=== PATIENT | male | born 1965 | race American Indian/Alaskan Native ===

== ENCOUNTER 2020-02-18 13:08 | Observation (INO) | payer OTHER ==
[~2020-02-18 13:08] MED LIST: ACETAMINOPHEN 500 MG TAB PO SCH; AMPHOTERICIN B 50 MG VIAL IV SCH; BACITRACIN 50,000 UNIT VIAL ONE; D5W 50 ML IVPB IV SCH; GABAPENTIN 300 MG CAP PO NR; GENTAMICIN 40 MG/ML VIAL 2 ML ONE; GENTAMICIN/NS 80 MG/100 ML 100 ML IV SCH; HYDROGEN PEROXIDE 118 ML SOLUTION ONE; LACTATED RINGERS 1,000 ML IV SCH; MIDAZOLAM 2 MG/2 ML INJ IV NR; SODIUM CHLORIDE P/F VIAL 10 ML 20 ML ONE; VANCOMYCIN 1000 MG INJ ONE; VANCOMYCIN/NS 1 GM/250 ML 1 GM/250 ML BAG IV NR
--- NOTE | 2020-02-18 13:52 | Anesthesia Day of Surgery ---
Anesthesia Day of Surgery - Day of Surgery Patient Examined: Yes Patient H&P Reviewed: Yes Patient is NPO: Yes
--- NOTE | 2020-02-18 13:52 | Anesthesia Consultation ---
Anesthesia Consult and Med Hx Date of service: 02/18/20 - Airway Anesthetic Teeth Evaluation: Dentures ROM Head & Neck: Adequate Mental/Hyoid Distance: Adequate Mallampati Class: Class II Intubation Access Assessment: Probably Good (previous LMA 4) - Pulmonary Exam CTA: Yes - Cardiac Exam Cardiac Exam: RRR - Pre-Operative Health Status ASA Pre-Surgery Classification: ASA3 Proposed Anesthetic Plan: General - Pulmonary Hx Smoking: Yes (21pk yr hx) Hx Respiratory Symptoms: No Hx Sleep Apnea: No (HAWA PRE SCREEN HIGH RISK) - Cardiovascular System Hx Hypertension: Yes (took antihypertensives this morning) Hx Heart Attack/AMI: Yes (2016; >4mets exercise tolerance) Hx Percutaneous Transluminal Coronary Angioplasty (PTCA): Yes (stents x2 2016) Hx Cardia Arrhythmia: No Hx Pacemaker: No Hx Internal Defibrillator: No - Central Nervous System CVA: No Hx Psychiatric Problems: No - Gastrointestinal Hx Gastroesophageal Reflux Disease: No - Endocrine Hx Renal Disease: No Hx Liver Disease: No Hx Insulin Dependent Diabetes: Yes Hx Thyroid Disease: No - Other Systems Hx Obesity: No - Additional Comments Anesthesia Medical History Comments: No hx anesthetic complications.
[2020-02-18] MEDS ORDERED: ONDANSETRON 4 MG/2 ML INJ IV PRN (13:53)
[2020-02-18] MEDS ORDERED: AMPHOTERICIN B IR NR (14:00)
[2020-02-18] MEDS ORDERED: [UNRECOGNIZED DRUG - OTHER] IR NR (14:00)
[2020-02-18] MEDS ORDERED: propofoL 200 MG/20 ML VIAL IV ONE (15:03)
[2020-02-18] MEDS ORDERED: LIDOCAINE MPF (2%) 20 MG/1 ML VIAL 5 ML ONE (15:09)
[2020-02-18] MEDS ORDERED: rifAMPin 600 MG VIAL ONE (16:14)
[2020-02-18] MEDS ORDERED: AMPHOTERICIN B 50 MG VIAL ONE (16:30)
[2020-02-18] MEDS ORDERED: KETOROLAC 30 MG/1 ML INJ ONE (16:30)
[2020-02-18] MEDS ORDERED: dexAMETHasone 20 MG/5 ML VIAL ONE (16:30)
[2020-02-18] MEDS ORDERED: ONDANSETRON 4 MG/2 ML INJ ONE (16:30)
[2020-02-18] MEDS ORDERED: SODIUM CHLORIDE P/F VIAL 10 ML 20 ML ONE (16:40)
[2020-02-18] MEDS ORDERED: PHENYLEPHRINE/NS 1,000 MCG/10 ML SYRINGE (OR USE) IV ONE (16:40)
[2020-02-18] MEDS ORDERED: SODIUM CHLORIDE 0.9% 100 ML ONE (16:49)
[2020-02-18] MEDS ORDERED: rifAMPin 600 MG VIAL IV ONE (17:07)
[2020-02-18] MEDS ORDERED: BACITRACIN 50,000 UNIT VIAL IR ONE (17:07)
[2020-02-18] MEDS ORDERED: ePHEDrine SULFATE 50 MG/1 ML INJ ONE (17:08)
[2020-02-18] MEDS ORDERED: SODIUM CHLORIDE 0.9% 100 ML IVPB IV ONE (17:09)
[2020-02-18] MEDS ORDERED: HYDROGEN PEROXIDE 118 ML SOLUTION IRRIGATION ONE (17:09)
[2020-02-18] MEDS ORDERED: GENTAMICIN 40 MG/ML VIAL 2 ML IV ONE (17:09)
[2020-02-18] MEDS ORDERED: SODIUM CHLORIDE 0.9% IRR 1,000 ML BOTTLE IR ONE (17:10)
[2020-02-18] MEDS ORDERED: ONDANSETRON 4 MG ODT TAB PO PRN (17:31)
[2020-02-18] MEDS ORDERED: NALOXONE 0.4 MG/1 ML INJ IV PRN (17:31)
[2020-02-18] MEDS ORDERED: DEXTROSE 50% IN WATER (25GM) 50 ML SYRINGE IV PRN ×2 (17:31→18:35)
--- NOTE | 2020-02-18 17:31 | Short Stay Summary ---
Short Stay Documentation Date of service: 02/18/20 - History H&P: obtained from office - Allergies and Medications Current Medications: Allergies No Known Allergies Allergy (Verified 12/10/19 14:35) Home Medications Medication Instructions Recorded Confirmed Last Taken Type Aspirin 81 mg PO DAILY 12/09/19 02/18/20 02/15/20 History Atorvastatin 20 mg PO DAILY 12/09/19 02/18/20 02/13/20 History Furosemide [Lasix TAB] 20 mg PO DAILY 12/09/19 02/15/20 02/18/20 04:00 History Gabapentin 300 mg PO DAILY 12/09/19 02/15/20 02/18/20 04:00 History Lispro Insulin [HumaLOG] 13 units SQ QAM 12/09/19 02/18/20 02/17/20 History carvediloL [Coreg] 25 mg PO DAILY 12/09/19 02/15/20 02/18/20 04:00 History lisinopriL [Zestril TAB] 20 mg PO DAILY 12/09/19 02/15/20 02/18/20 04:00 History metFORMIN 500 mg PO DAILY 12/09/19 02/18/20 02/11/20 History Active Medications Acetaminophen (Tylenol) 1,000 mg PO PREOP LAURA Stop: 02/18/20 22:00 Last Admin: 02/18/20 13:58 Dose: 1,000 mg Documented by: Dextrose (D5w (50 Ml)) 5 ml IV Q24H LAURA Stop: 02/18/20 23:00 Gabapentin (Gabapentin) 300 mg PO PREOP NR Stop: 02/18/20 22:00 Last Admin: 02/18/20 13:58 Dose: 300 mg Documented by: Hydromorphone HCl (Dilaudid) 0.5 mg IV Q10MIN PRN PRN Reason: Pain , Severe (7-10) Stop: 02/18/20 23:59 Lactated Ringer's (Lactated Ringers) 1,000 mls @ 100 mls/hr IV DIRECT LAURA Stop: 02/18/20 23:59 Last Admin: 02/18/20 14:13 Dose: 100 mls/hr Documented by: Gentamicin Sulfate/Sodium Chloride (Gentamicin/Ns 80 Mg/100 Ml) 100 mls @ 200 mls/hr IV PREOP LAURA Stop: 02/29/20 23:59 Vancomycin HCl (Vancomycin/Ns 1 Gm/250 Ml) 1 gm in 250 mls @ 166.667 mls/hr IV PREOP NR; Protocol Stop: 02/18/20 23:59 Last Admin: 02/18/20 14:41 Dose: 166.667 mls/hr Documented by: Midazolam HCl (Versed) 2 mg IV PREOP NR Stop: 02/18/20 22:00 Ondansetron HCl (Zofran) 4 mg IV ONCE PRN PRN Reason: Nausea And Vomiting - Brief post op/procedure progress note Date of procedure: 02/18/20 Pre-op diagnosis: infected ipp (coloplast) Post-op diagnosis: same Procedure: removed inflatable penile prosthesis, wash out, insert semirigid penile [id number] Anesthesia: GETA Findings: infected pum, washout, shoshana in pump fossa Surgeon: VLAD CORDOVA Estimated blood loss: minimal Pathology: none Condition: stable - Hospital course Hospital course: lopez & drain removed keep penile point upward norco, flomax, bactrim , diflucan on chart diabetic support eval done - Disposition Condition at discharge: Stable Short Stay Discharge Plan Follow up with: PRIMARY CARE, [Primary Care Provider] - 7 Days
[2020-02-18] MEDS: HYDROmorphone 1 MG/1 ML INJ IV PRN ×4 (17:41→18:14)
[2020-02-18] MEDS ORDERED: HYDROmorphone 1 MG/1 ML INJ ONE ×2 (17:46→18:05)
[2020-02-18] MEDS ORDERED: MORPHINE 4 MG/1 ML INJ ONE (18:16)
[2020-02-18] MEDS: MORPHINE 4 MG/1 ML INJ IV PRN (18:17)
--- NOTE | 2020-02-18 18:26 | Post Anesthesia Evaluation ---
- Post Anesthesia Evaluation Patient Participated: Yes Airway Patent: Yes Stable Respiratory Function: Yes Nausea/Vomiting: No Temp > 96.8F: Yes Pain Manageable: Yes Adequeate Hydration: Yes Anesthesia Complications: No
--- NOTE | 2020-02-18 18:31 | Consultation ---
History of Present Illness - Reason for Consult Consult date: 02/18/20 Requesting physician: VLAD CORDOVA - History of Present Illness 54 YO Male with DM, Nicotine Dependence, HTN, [place], CAD S/P Stent Placement, [place] admitted to urologic procedure. Patient seen and evaluated in his room. Patient resting comfortably. Patient denies fever, chills, chest pain, palpita tion, productive cough, skin rash, recent ill contacts. No reported nursing events. Past History Past Medical History: CAD, diabetes, hypertension, hyperlipidemia Past Surgical History: Other (Cardiac stent placement) Social history: single. denies: smoking, alcohol abuse Family history: diabetes, hypertension Medications and Allergies Allergies Allergy/AdvReac Type Severity Reaction Status Date / Time No Known Allergies Allergy Verified 12/10/19 14:35 Home Medications Medication Instructions Recorded Confirmed Last Taken Type Aspirin 81 mg PO DAILY 12/09/19 02/18/20 02/15/20 History Atorvastatin 20 mg PO DAILY 12/09/19 02/18/20 02/13/20 History Furosemide [Lasix TAB] 20 mg PO DAILY 12/09/19 02/15/20 02/18/20 04:00 History Gabapentin 300 mg PO DAILY 12/09/19 02/15/20 02/18/20 04:00 History Lispro Insulin [HumaLOG] 13 units SQ QAM 12/09/19 02/18/20 02/17/20 History carvediloL [Coreg] 25 mg PO DAILY 12/09/19 02/15/20 02/18/20 04:00 History lisinopriL [Zestril TAB] 20 mg PO DAILY 12/09/19 02/15/20 02/18/20 04:00 History metFORMIN 500 mg PO DAILY 12/09/19 02/18/20 02/11/20 History Active Meds: Active Medications Acetaminophen (Tylenol) 1,000 mg PO PREOP LAURA Stop: 02/18/20 22:00 Last Admin: 02/18/20 13:58 Dose: 1,000 mg Documented by: Hydrocodone Bitart/Acetaminophen ([place] 5/325) 2 each PO Q6H PRN PRN Reason: Pain, Moderate (4-6) Dextrose (D5w (50 Ml)) 5 ml IV Q24H LAURA Stop: 02/18/20 23:00 Dextrose (D50w (25gm) Syringe) 50 ml IV Q30MIN PRN; Protocol PRN Reason: Hypoglycemia Gabapentin (Gabapentin) 300 mg PO PREOP NR Stop: 02/18/20 22:00 Last Admin: 02/18/20 13:58 Dose: 300 mg Documented by: Lactated Ringer's (Lactated Ringers) 1,000 mls @ 100 mls/hr IV DIRECT LAURA Stop: 02/18/20 23:59 Last Admin: 02/18/20 14:13 Dose: 100 mls/hr Documented by: Gentamicin Sulfate/Sodium Chloride (Gentamicin/Ns 80 Mg/100 Ml) 100 mls @ 200 mls/hr IV PREOP LAURA Stop: 02/29/20 23:59 Vancomycin HCl (Vancomycin/Ns 1 Gm/250 Ml) 1 gm in 250 mls @ 166.667 mls/hr IV PREOP NR; Protocol Stop: 02/18/20 23:59 Last Admin: 02/18/20 14:41 Dose: 166.667 mls/hr Documented by: Vancomycin HCl (Vancomycin/Ns 1 Gm/250 Ml) 1 gm in 250 mls @ 167.007 mls/hr IV Q12H LAURA Stop: 02/19/20 03:30 Metronidazole (Flagyl 500 Mg/100 Ml) 500 mg in 100 mls @ 100 mls/hr IV Q8HR LAURA; Protocol Insulin Human Regular (Humulin R) 0 unit SUB-Q ACHS LAURA; Protocol Midazolam HCl (Versed) 2 mg IV PREOP NR Stop: 02/18/20 22:00 Morphine Sulfate (Morphine) 4 mg IV Q4H PRN PRN Reason: Pain , Severe (7-10) Last Admin: 02/18/20 18:17 Dose: 4 mg Documented by: Naloxone HCl (Naloxone) 0.1 mg IV Q2MIN PRN PRN Reason: Res Rate </= 8 or 02 SAT < 92% Ondansetron HCl (Zofran) 4 mg IV ONCE PRN PRN Reason: Nausea And Vomiting Ondansetron HCl (Zofran Odt) 4 mg PO Q8H PRN PRN Reason: Nausea And Vomiting Review of Systems Constitutional: no weight loss, no weight gain, no fever, no chills Ears, nose, mouth and throat: no ear pain, no ear discharge, no tinnitis, no decreased hearing, no nose pain Cardiovascular: no chest pain, no palpitations, no rapid/irregular heart beat, no edema, no syncope Respiratory: no cough, no cough with sputum, no excessive sputum, no shortness of breath Gastrointestinal: no abdominal pain, no vomiting, no constipation, no change in bowel habits Genitourinary Male: no flank pain, no urinary frequency Rectal: no pain, no incontinence, no bleeding Musculoskeletal: no neck stiffness, no neck pain, no arm numbness/tingling, no low back pain Integumentary: no rash, no pruritis, no redness, no sores, no wounds, no jaundice Neurological: no head injury, no paralysis, no parathesias, no tingling, no seizures, no syncope Psychiatric: no anxiety, no memory loss, no insomnia, no hypersomnia, no change in appetite, no change in libido, no suicidal ideation Endocrine: no cold intolerance, no excessive thirst, no nocturia, no flushing, no weight change, no proptosis, no high blood sugars, no recent glucocorticoid use Hematologic/Lymphatic: no easy bleeding, no lymphadenopathy Allergic/Immunologic: no urticaria, no wheezing, no persistent infections, no angioedema Exam - Constitutional Vitals: Temp Pulse Resp BP Pulse Ox 98.5 F 75 14 107/67 100 02/18/20 14:25 02/18/20 14:25 02/18/20 18:17 02/18/20 14:25 02/18/20 14:25 General appearance: Present: no acute distress, well-nourished - EENT Eyes: Present: PERRL ENT: hearing intact, clear oral mucosa - Neck Neck: Present: supple, normal ROM - Respiratory Respiratory effort: normal Respiratory: bilateral: CTA - Cardiovascular Heart Sounds: Present: S1 & S2. Absent: rub, click - Extremities Extremities: pulses symmetrical, No edema Peripheral Pulses: within normal limits - Abdominal General gastrointestinal: Present: soft, non-tender, non-distended, normal bowel sounds Male genitourinary: Present: normal - Integumentary Integumentary: Present: clear, warm, dry - Musculoskeletal Musculoskeletal: gait normal, strength equal bilaterally - Psychiatric Psychiatric: appropriate mood/affect, intact judgment & insight - Neurologic Neurologic: CNII-XII intact, moves all extremities Results - Labs CBC & Chem 7: 02/18/20 14:13 Labs: Abnormal lab results 02/18/20 Range/Units 14:34 POC Glucose 128 H (70-105) Assessment and Plan - Patient Problems (1) Diabetes Current Visit: Yes Status: Acute Plan to address problem: Sliding scale insulin therapy, Accu-Chek, consistent carbohydrate diet, hypoglycemia protocol. (2) Hyperlipidemia Current Visit: No Status: Chronic Qualifiers: Hyperlipidemia type: mixed hyperlipidemia Qualified Code(s): E78.2 - Mixed hyperlipidemia Plan to address problem: Low-cholesterol diet, statin therapy as clinically indicated, risk factor red uction. (3) Hypertension Current Visit: No Status: Chronic Qualifiers: Hypertension type: essential hypertension Qualified Code(s): I10 - Essential (primary) hypertension Plan to address problem: Monitor blood pressure every shift, continue medical management.
[2020-02-18] MEDS ORDERED: INSULIN REGULAR, HUMAN 100 UNIT/ML 3ML VIAL SUB-Q SCH (22:00)
[2020-02-18] MEDS: metroNIDAZOLE/NS 500 MG/100 ML 500 MG/100 ML BAG IV SCH (22:33)
[2020-02-18] MEDS: HYDROcodone/ACETAMINOPHEN 5-325 MG TAB PO PRN (22:34)
[2020-02-19] MEDS ORDERED: VANCOMYCIN/NS 1 GM/250 ML 1 GM/250 ML BAG IV SCH (02:00)
[2020-02-19] MEDS: MORPHINE 4 MG/1 ML INJ IV PRN (02:25)
[2020-02-19] MEDS: INSULIN LISPRO 100 UNIT/ML VIAL 3 mL SUB-Q SCH ×3 (02:31→07:28)
[2020-02-19] MEDS: metroNIDAZOLE/NS 500 MG/100 ML 500 MG/100 ML BAG IV SCH (05:00)
[2020-02-19 05:33] LABS: Basophils % (Auto) 0.2 % (0.0-1.8); Hemoglobin 9.9 gm/dl (11.8-15.2); Lymphocytes # (Auto) 1.5 K/mm3 (1.2-5.4); Lymphocytes % (Auto) 10.7 % (13.4-35.0); Mean Corpuscular HGB Conc 33 % (32-34); Mean Corpuscular Volume 85 fl (84-94); Monocytes # (Auto) 0.8 K/mm3 (0.0-0.8); Monocytes % (Auto) 5.4 % (0.0-7.3); Platelet Count 414 K/mm3 (140-440); Red Blood Count 3.53 M/mm3 (3.65-5.03); Red Cell Distribution Width 15.3 % (13.2-15.2)
[2020-02-19] MEDS: HYDROcodone/ACETAMINOPHEN 5-325 MG TAB PO PRN (06:20)
[2020-02-19 07:10] LABS: BUN/Creatinine Ratio 18; Blood Urea Nitrogen 22 mg/dL (9-20); Calcium 9.1 mg/dL (8.4-10.2); Hemolysis Index 5
--- NOTE | 2020-02-19 09:04 | Event Note ---
Date: 02/19/20 lopez & drain removed keep penile point upward norco, flomax, bactrim , diflucan on chart needs diabetic support eval
[2020-02-19] MEDS ORDERED: carvediloL 25 MG TAB PO SCH (10:00)
[2020-02-19] MEDS ORDERED: GABAPENTIN 300 MG CAP PO SCH (10:00)
[2020-02-19] MEDS ORDERED: FUROSEMIDE 20 MG TAB PO SCH (10:00)
[2020-02-19] MEDS ORDERED: NON-FORMULARY EACH (Atorvastatin 20 MG) PO SCH (10:00)
[2020-02-19] MEDS ORDERED: LISINOPRIL 20 MG TAB PO SCH (10:00)
[2020-02-19 12:12] VITALS: BP 131/69
[2020-02-19 13:15] LABS: Basophils % (Auto) 0.3 % (0.0-1.8); Eosinophils # (Auto) 0.1 K/mm3 (0.0-0.4); Eosinophils % (Auto) 0.7 % (0.0-4.3); Hematocrit 30.1 % (35.5-45.6); Hemoglobin 10.2 gm/dl (11.8-15.2); Lymphocytes % (Auto) 12.7 % (13.4-35.0); Mean Corpuscular HGB Conc 34 % (32-34); Mean Corpuscular Volume 85 fl (84-94); Monocytes % (Auto) 6.1 % (0.0-7.3); Platelet Count 425 K/mm3 (140-440); Red Blood Count 3.53 M/mm3 (3.65-5.03); Red Cell Distribution Width 15.8 % (13.2-15.2)
--- NOTE | 2020-02-19 13:58 | Progress Note ---
Assessment and Plan (1) Diabetes Current Visit: Yes Status: Acute Plan to address problem: Sliding scale insulin therapy, Accu-Chek, consistent carbohydrate diet, hy poglycemia protocol. (2) Hyperlipidemia Current Visit: No Status: Chronic Qualifiers: Hyperlipidemia type: mixed hyperlipidemia Qualified Code(s): E78.2 - Mixed hyperlipidemia Plan to address problem: Low-cholesterol diet, statin therapy as clinically indicated, risk factor reduction. (3) Hypertension Current Visit: No Status: Chronic Qualifiers: Hypertension type: essential hypertension Qualified Code(s): I10 - Ess ential (primary) hypertension Plan to address problem: Monitor blood pressure every shift, continue medical management. - patient being dc today with outpt f/.u Subjective Date of service: 02/19/20 Objective - Constitutional Vitals: Vital Signs - 12hr 02/19/20 02/19/20 02/19/20 07:49 10:38 10:39 Temperature 97.7 F Pulse Rate 69 69 69 Respiratory 14 Rate Blood Pressure 128/70 128/70 Blood Pressure 128/70 [Left] O2 Sat by Pulse 97 Oximetry 02/19/20 12:00 Temperature 97.8 F Pulse Rate 72 Respiratory 15 Rate Blood Pressure Blood Pressure 131/69 [Left] O2 Sat by Pulse 97 Oximetry - Labs CBC & Chem 7: 02/19/20 12:37 02/19/20 04:59 Labs: Abnormal lab results 02/18/20 02/19/20 02/19/20 Range/Units 14:34 02:46 04:59 WBC 14.5 H (4.5-11.0) K/mm3 RBC 3.53 L (3.65-5.03) M/mm3 Hgb 9.9 L (11.8-15.2) gm/dl Hct 30.0 L (35.5-45.6) % RDW 15.3 H (13.2-15.2) % Lymph % (Auto) 10.7 L (13.4-35.0) % [place] # (Auto) (0.0-0.8) K/mm3 Seg Neutrophils % 83.7 H (40.0-70.0) % Seg Neutrophils # 12.2 H (1.8-7.7) K/mm3 Sodium (137-145) mmol/L BUN (9-20) mg/dL Glucose (75-100) mg/dL POC Glucose 128 H 264 H (70-105) 02/19/20 02/19/20 02/19/20 Range/Units 04:59 06:32 07:24 WBC (4.5-11.0) K/mm3 RBC (3.65-5.03) M/mm3 Hgb (11.8-15.2) gm/dl Hct (35.5-45.6) % RDW (13.2-15.2) % Lymph % (Auto) (13.4-35.0) % [place] # (Auto) (0.0-0.8) K/mm3 Seg Neutrophils % (40.0-70.0) % Seg Neutrophils # (1.8-7.7) K/mm3 Sodium 136 L (137-145) mmol/L BUN 22 H (9-20) mg/dL Glucose 232 H (75-100) mg/dL POC Glucose 227 H 250 H (70-105) 02/19/20 02/19/20 Range/Units 12:00 12:37 WBC 16.1 H (4.5-11.0) K/mm3 RBC 3.53 L (3.65-5.03) M/mm3 Hgb 10.2 L (11.8-15.2) gm/dl Hct 30.1 L (35.5-45.6) % RDW 15.8 H (13.2-15.2) % Lymph % (Auto) 12.7 L (13.4-35.0) % [place] # (Auto) 1.0 H (0.0-0.8) K/mm3 Seg Neutrophils % 80.2 H (40.0-70.0) % Seg Neutrophils # 12.9 H (1.8-7.7) K/mm3 Sodium (137-145) mmol/L BUN (9-20) mg/dL Glucose (75-100) mg/dL POC Glucose 228 H (70-105)
--- NOTE | 2020-02-19 18:15 | Operative Report ---
PREOPERATIVE DIAGNOSIS: Infected inflatable penile prosthesis. POSTOPERATIVE DIAGNOSIS: Infected inflatable penile prosthesis. PROCEDURE: Removal and replacement of inflatable penile prosthesis through infected field with Owen irrigation system. SURGEON: Mode Dahl MD ANESTHESIA: General. ESTIMATED BLOOD LOSS: Minimal. FLUIDS: Crystalloid. COMPLICATIONS: No complications. INDICATIONS: This 54-year-old gentleman with a history of erectile dysfunction secondary to diabetes and smoking. Discussed options. The patient agreed and underwent insertion of inflatable penile prosthesis on 12/14/2019 (Coloplast device). On initial followup, the patient was doing well. It was noted his blood sugar was high. At this point, he is having difficulty getting his medication for his diabetes. He was seen on several visits for pain and drainage. He was given antibiotics orally as well as injection. Also, of note again his urine continued to dip positive for glucose. Hemoglobin A1c was 9.8. His drainage persisted and felt it was prudent to proceed with exploration and possible removal, replacement, revision. Risks, benefits, and complications were explained. DESCRIPTION OF PROCEDURE: The patient was taken to the operative suite, placed in a supine position. After adequate general anesthesia, he was prepped and draped in a sterile fashion. On inspection, the patient had a bullous lesion, mid shaft on the left side. Singh catheter was placed. He had drainage from the scrotum. Midline scrotal incision was made through a preexisting incision. There was jostin pus noted in the pump compartment. This was cultured, anaerobic and aerobic. Copious irrigation was performed. I tracked the tubing to the reservoir. It was cut. The reservoir was drained and it was removed. No obvious sign of infection was noted in the reservoir fossa via the right external ring. Attention was then taken to the corporal bodies, which with the tubing was tracked to the left corporal body. Corporotomy was made. There was a small amount of drainage noted here. Also, when I irrigate it, it was noted to have a small hole in mid shaft. Cylinder was removed on the left. Corporotomy was made and the cylinder was removed on the right with no obvious infection on the right side. Left corporal body was cultured. Next, using a Owen soup wash vigorous irrigation was performed in the corporal bodies and in the pump. Measurements revealed 22 cm. It was felt that he would benefit from a semi-rigid device to maintain corporal body integrity, and therefore, a Stephani malleable device, which was cut to 22 cm, it was 11 mm diameter. Prior to placement, three Vicryl suture was placed in the small hole on left corporal by the left side of the shaft of the penis using 2-0 Vicryl in interrupted fashion, irrigation, no leak in that side. Then, the cylinders were both placed and closed in 2-0 Vicryl in an interrupted fashion. The cylinders were soaked in antibiotic solution and amphotericin was added to this solution. The solution was also used to irrigate the wound as well. The dartos layer was then closed using 2-0 Vicryl in interrupted fashion. In the dependent portion of the scrotum as where the infection was noted and therefore, attention was taken to wall this off from the rest of the device and a small 0.5-inch Galina was placed in the dependent portion of the scrotum. Skin was closed with 2-0 Vicryl in interrupted fashion. Mummy wrap was placed. Singh catheter was left indwelling. He was extubated and taken to recovery room in stable condition. JOB# [id number] CHUCK/SILVIANO
== END 2020-02-19 14:45 | disposition home or self-care (01) ==
LOC: OR 13:08 → 3A 17:31 → 3B-SURG 17:47
PROVIDERS: ADMIT Urology; ATTEND Urology
DX: T83.61XA Infection and inflammatory reaction due to implanted penile prosthesis, initial encounter (principal); T83.84XA Pain due to genitourinary prosthetic devices, implants and grafts, initial encounter; I10 Essential (primary) hypertension; I25.10 Atherosclerotic heart disease of native coronary artery without angina pectoris; E11.9 Type 2 diabetes mellitus without complications; E78.2 Mixed hyperlipidemia; Z95.1 Presence of aortocoronary bypass graft; Z79.82 Long term (current) use of aspirin; Z79.84 Long term (current) use of oral hypoglycemic drugs; Z79.899 Other long term (current) drug therapy
CPT/HCPCS: 36415; 54417; 80048; 82962; 84132; 85025; 87075; 87116; 96365; 96366; 96367; 96372; 96375; 96376; A9270; C1813; G0378; J0285; J1100; J1170; J1580; J1885; J1956; J2270; J2370; J2405; J2704; J3370; J3490; J7120; J2250